=== PATIENT | male | born 1975 | race African-American/Black ===

== ENCOUNTER 2019-10-03 08:57 | Emergency (ER) | payer BC ==
[~2019-10-03] VITALS: Ht 170.2 cm; Wt 89.4 kg
== END 2019-10-03 18:42 | disposition home or self-care (01) ==
LOC: ER 08:57
DX: Z03.818 Encounter for observation for suspected exposure to other biological agents ruled out (principal); B34.9 Viral infection, unspecified; R51 Headache; R50.9 Fever, unspecified; R53.81 Other malaise